=== PATIENT | male | born 1995 ===

== ENCOUNTER 2017-03-07 23:57 | Emergency (ER) | payer SELFPAY ==
[2017-03-08 00:05] VITALS: PULSE 75; O2SAT 100
--- NOTE | 2017-03-08 01:24 | C.PDOC ---
History Of Present Illness 21 y/o male presents to ED with complaints of intermittent chest pain for 4 days with associated shortness of breath. Pain last for one minute and self resolves. Patient reports same pain developed 6 month ago but resolved on its own. Patient has not seen a MD for evaluation or taken medication. Patient denies anxiety, fever, cough or any other complaints at this time. /currently has no chest pain. 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 History/Exam Limitations: no limitations Onset/Duration Of Symptoms: Days Current Symptoms Are (Timing): Still Present Quality: "Pain" Past Medical History Reviewed: Historical Data, Nursing Documentation, Vital Signs Vital Signs: Last Vital Signs Temp 98 F 03/08/17 01:31 Pulse 75 03/08/17 01:31 Resp 16 03/08/17 01:31 BP 134/85 03/08/17 01:31 Pulse Ox 100 03/08/17 01:36 - Medical History PMH: No Chronic Diseases Surgical History: No Surg Hx Family History: States: No Known Family Hx - Social History Hx Alcohol Use: No Hx Substance Use: No - Immunization History Hx Tetanus Toxoid Vaccination: No Hx Influenza Vaccination: No Hx Pneumococcal Vaccination: No Review Of Systems Constitutional: Negative for: Fever, Chills Cardiovascular: Positive for: Chest Pain Respiratory: Positive for: Shortness of Breath. Negative for: Cough Gastrointestinal: Negative for: Nausea, Vomiting Skin: Negative for: Rash Neurological: Negative for: Dizziness Physical Exam - Physical Exam Appears: Non-toxic, No Acute Distress Skin: Normal Color, Warm, Dry, No Rash Head: Atraumatic, Normacephalic Eye(s): bilateral: Normal Inspection, EOMI Ear(s): Bilateral: Normal Nose: Normal Oral Mucosa: Moist Throat: Normal, No Erythema, No Exudate Neck: Normal ROM, Supple Chest: Symmetrical, No Tenderness Cardiovascular: Rhythm Regular Respiratory: Normal Breath Sounds, No Rales, No Rhonchi, No Wheezing Gastrointestinal/Abdominal: Soft, No Tenderness, No Guarding, No Rebound Neurological/Psych: Oriented x3, Normal Motor, Normal Sensation ED Course And Treatment ECG: Interpreted By Me, Viewed By Me ECG Rhythm: Sinus Rhythm Rate From EC (bpm) O2 Sat by Pulse Oximetry: 100 (RA) Pulse Ox Interpretation: Normal - Radiology CXR: Interpreted by Me, Viewed By Me CXR Interpretation: Yes: No Acute Disease Progress Note: Ibuprofen, ECG. PERC negative. Patient is resting comfortably, is no longer having chest pain or shortness of breath. Patient has no risk factors for pulmonary emboli or DVT. Clinical presentation is not suggestive of aortic dissection. Patient is being discharged home and is being advised to follow up with physician/clinic in 1-2 days. DIscused though immediate intervention is not indicated, strict follow up is indicated . Case discussed with Dr Garcia, agree dupon plan and discharge. Disposition - Disposition Referrals: [facility] [Outside] Disposition: HOME/ ROUTINE Disposition Time: 01:21 Condition: STABLE Additional Instructions: Aunque no est indicada la intervencin y / o internacin inmediata, se recomienda un seguimiento estricto en 1-2 holt. Toda patologa no solomon sido descartada y puede desarrollarse. Si los sntomas persisten o empeoran, regrese a ER de inmediato. Though immediate intervention and/or admission is not indicated, strict follow up is indicated in 1-2 days. All pathology has not been ruled out and may develop. If symptoms persist or worsen, return to ER right away. Instructions: Chest Pain (ED) Forms: [employer] (Cymraes) Print Language: CHINESE - Clinical Impression Clinical Impression: Chest pain - PA / CREDIT COLLECTOR / Resident Statement MD/DO has reviewed & agrees with the documentation as recorded. - Scribe Statement The provider has reviewed the documentation as recorded by the Hannahibankit Scott All medical record entries made by the Hannahibankit were at my direction and personally dictated by me. I have reviewed the chart and agree that the record accurately reflects my personal performance of the history, physical exam, medical decision making, and the department course for this patient. I have also personally directed, reviewed, and agree with the discharge instructions and disposition.
[2017-03-08 01:33] VITALS: BP 134/85; RESP 16; TEMP 98
--- NOTE | 2017-03-08 08:20 | RAD ---
HISTORY: pain COMPARISON: None available. TECHNIQUE: Chest PA and lateral FINDINGS: LUNGS: No focal consolidation. Please note that chest x-ray has limited sensitivity for the detection of pulmonary masses. PLEURA: No significant pleural effusion identified. No definite pneumothorax . CARDIOVASCULAR: The cardiomediastinal silhouette appears within normal limits of size. OSSEOUS STRUCTURES: No acute osseous abnormality identified. VISUALIZED UPPER ABDOMEN: Unremarkable. OTHER FINDINGS: None. IMPRESSION: No focal consolidation, significant pleural effusion, or definite pneumothorax identified.
--- NOTE | 2017-03-08 18:39 | CARD ---
APPROVED REPORT EKG Measurement Heart [id number] <Conclusion> Normal sinus rhythm Normal ECG
== END 2017-03-08 01:33 | disposition home or self-care (01) ==
LOC: C.ER 23:57 → SUPCPDRO 23:57 → EDBD 23:57 → C.ER 03-08 01:33
DX: R07.9 Chest pain, unspecified (principal)

== ENCOUNTER 2017-07-22 20:41 | Emergency (ER) | payer SELFPAY ==
[2017-07-22 21:09] VITALS: RESP 20
[2017-07-22 22:20] VITALS: BP 111/70; PULSE 88; TEMP 101.2; O2SAT 97
--- NOTE | 2017-07-22 22:48 | C.PDOC ---
History Of Present Illness 21 year old male presents to the ER with a complaint of body aches, malaise, dry cough, and decreased appetite for the past 3 days, associated with a fever today. Denies chills, SOB, or chest pain. Time Seen by Provider: 07/22/17 22:05 Chief Complaint (Nursing): Flu-like Symptoms History Per: Patient History/Exam Limitations: no limitations Onset/Duration Of Symptoms: Days Current Symptoms Are (Timing): Still Present Location Of Pain: Diffuse Myalgias Sick Contacts (Context): None Associated Symptoms: Fever, Cough, Myalgias, Other ((+) malaise, decreased appetite. (-) SOB, Chest pain). denies: Chills Ear Symptoms: Bilateral: None Recent travel outside of the [place]: No Past Medical History Reviewed: Historical Data, Nursing Documentation, Vital Signs Vital Signs: Last Vital Signs Temp 101.2 F H 07/22/17 22:19 Pulse 88 07/22/17 22:19 Resp 20 07/22/17 22:19 BP 111/70 07/22/17 22:19 Pulse Ox 97 07/22/17 22:50 Family History: States: Unknown Family Hx - Social History Hx Alcohol Use: No Hx Substance Use: No - Immunization History Hx Tetanus Toxoid Vaccination: No Hx Influenza Vaccination: No Hx Pneumococcal Vaccination: No Review Of Systems Constitutional: Positive for: Fever, Malaise, Other (Decreased appetite). Negative for: Chills Cardiovascular: Negative for: Chest Pain Respiratory: Positive for: Cough. Negative for: Shortness of Breath Musculoskeletal: Positive for: Other (Body aches) Physical Exam - Physical Exam Appears: Non-toxic, No Acute Distress Skin: Normal Color, Warm, Dry Head: Atraumatic, Normacephalic Eye(s): bilateral: Normal Inspection Ear(s): Bilateral: Normal Nose: Normal Oral Mucosa: Moist Throat: Normal, No Erythema, No Exudate Neck: Normal, Supple Chest: Symmetrical, No Tenderness Cardiovascular: Rhythm Regular Respiratory: Normal Breath Sounds, No Rales, No Rhonchi, No Wheezing Neurological/Psych: Oriented x3, Normal Speech ED Course And Treatment O2 Sat by Pulse Oximetry: 97 (Room air) Pulse Ox Interpretation: Normal Progress Note: Tylenol administered during triage with improvement of fever; motrin and tamiflu also administered after my assessment. Patient is resting comfortably in no acute distress, vitals are stable. Will discharge home with Rx and instructions to follow up with PMD or return if symptoms worsen. Patient understands and agrees with plan. Disposition Counseled Patient/Family Regarding: Diagnosis, Need For Followup, Rx Given - Disposition Referrals: Non [facility] Provider, [Primary Care Provider] - Disposition: HOME/ ROUTINE Disposition Time: 22:45 Condition: STABLE Additional Instructions: Please follow up with PMD or in clinic [facility] Return to ER if worse Prescriptions: Benzonatate [Tessalon Perles] 100 mg PO TID #20 sgl Ibuprofen [Motrin] 600 mg PO Q6H #24 tab Oseltamivir [Tamiflu] 75 mg PO BID #10 cap Instructions: Flu, Adult (DC) Forms: [employer] (Hebrew) Print Language: MONGOLIAN - Clinical Impression Clinical Impression: Influenza-like illness - PA / MEDICAL SURGERY NURSE / Resident Statement MD/DO has reviewed & agrees with the documentation as recorded. - Scribe Statement The provider has reviewed the documentation as recorded by the Scribankit Valles All medical record entries made by the Hannahibankit were at my direction and personally dictated by me. I have reviewed the chart and agree that the record accurately reflects my personal performance of the history, physical exam, medical decision making, and the department course for this patient. I have also personally directed, reviewed, and agree with the discharge instructions and disposition.
== END 2017-07-22 23:01 | disposition home or self-care (01) ==
LOC: SUPCPDRO 20:41 → C.ER 20:41
DX: J11.1 Influenza due to unidentified influenza virus with other respiratory manifestations (principal)